=== PATIENT | female | born 2000 | race Caucasian/White ===

== ENCOUNTER 2021-03-25 15:02 | Emergency (ER) | payer SELFPAY ==
[~2021-03-25] VITALS: Ht 152.4 cm; Wt 61.2 kg
[2021-03-25 15:05] VITALS: BP_SYST 110
--- NOTE | 2021-03-25 15:10 | NUR ---
Patient triaged and placed in waiting room. VSS and patient appears in no acute distress at this time. Accompanied by SELF, awaiting available bed, and MD notified of need for MSE.
--- NOTE | 2021-03-25 15:20 | NUR ---
PT STATES SHE WAS PLAYING AROUND AND FELL ONTO RIGHT SHOULDER. STATES SHE IS UNABLE TO MOVE SHOULDER AT THIS TIME. LIMITED ROM DUE TO PAIN.
--- NOTE | 2021-03-25 15:55 | NUR ---
DR SANABRIA OUT TO TRIAGE ROOM TO EVALUATE PT.
--- NOTE | 2021-03-25 17:24 | NUR ---
XRAY DONE AND DR SANABRIA SPEAKING WITH PT
[2021-03-25] MEDS ORDERED: KETOROLAC TROMETHAMINE 15 MG VIAL IM ONE (17:30)
[2021-03-25] MEDS ORDERED: IBUPROFEN 600 MG TABLET PO ONE (17:45)
--- NOTE | 2021-03-25 18:15 | NUR ---
Patient given written and verbal discharge instructions and verbalizes understanding. ER MD discussed with patient the results and treatment provided. Patient in stable condition. ID arm band removed. Rx of NONE given. Patient educated on pain management and to follow up with PMD. Pain Scale 0/10. Opportunity for questions provided and answered. Medication side effect fact sheet provided.
== END 2021-03-25 18:15 | disposition home or self-care (01) ==
LOC: SED 15:02
DX: M25.511 Pain in right shoulder (principal)
CPT/HCPCS: 73030; 99283